=== PATIENT | male | born 1980 | race Caucasian/White ===

== ENCOUNTER 2019-02-10 12:01 | Emergency (ER) | payer MEDICAID | END 2019-02-10 12:59 | disposition home or self-care (01) | LOC: FTE 12:01 | DX: R13.10 Dysphagia, unspecified (principal); T46.4X5A Adverse effect of angiotensin-converting-enzyme inhibitors, initial encounter; I10 Essential (primary) hypertension; E11.9 Type 2 diabetes mellitus without complications | CPT/HCPCS: 99283; Z7502 ==